=== PATIENT | male | born 1970 | race Caucasian/White ===

== ENCOUNTER 2019-12-25 07:56 | Outpatient (CLI) | payer BC, SELFPAY ==
[2019-12-26 09:27] LABS: PSA, Screening 4.7 ng/mL (0.0-3.5)
== END 2019-12-25 08:16 ==
PROVIDERS: PCP Family Medicine; Visit Provider Nurse Practitioner Gerontology
DX: R97.20 Elevated prostate specific antigen [PSA] (principal); N40.1 Benign prostatic hyperplasia with lower urinary tract symptoms; R33.8 Other retention of urine
CPT/HCPCS: 84153

== ENCOUNTER 2020-03-19 10:02 | Outpatient (REF) | payer BC, SELFPAY ==
[2020-03-19 23:51] LABS: PSA, Screening 5.8 ng/mL (0.0-3.5)
== END 2020-03-19 10:22 ==
LOC: LBN 10:02
PROVIDERS: PCP Family Medicine; Visit Provider Nurse Practitioner Gerontology
DX: N40.1 Benign prostatic hyperplasia with lower urinary tract symptoms (principal); R33.8 Other retention of urine; Z12.5 Encounter for screening for malignant neoplasm of prostate; N13.8 Other obstructive and reflux uropathy
CPT/HCPCS: 84153

== ENCOUNTER 2020-08-16 22:24 | Outpatient (RCR) | payer BC, SELFPAY | END 2020-09-04 23:59 | disposition home or self-care (01) | LOC: CR 22:24 | PROVIDERS: PCP Family Medicine; Visit Provider Family Medicine ==

== ENCOUNTER 2022-09-04 12:37 | Outpatient (REF) | payer BC, SELFPAY ==
[2022-09-04 20:34] LABS: Bilirubin Small (Negative); Blood Small (Negative); Clarity Cloudy (Clear); Glucose Negative (Negative); Ketones 40 mg/dL (Negative); Leukocyte Esterase Trace (Negative); Nitrite Negative (Negative); Specific Gravity >= 1.030 (1.005-1.025); Urobilinogen 0.2 mg/dL (Up to 0.2); pH 5.5 (5-8)
[2022-09-04 20:40] LABS: Bacteria Few HPF (Negative); C & S Indicated? Yes; Casts Negative LPF (Negative); Crystals Moderate Amorphous HPF (Negative); Epithelial Cells Few HPF (Negative); Mucus Negative (Negative)
== END 2022-09-04 12:38 | disposition home or self-care (01) ==
LOC: NCHCN 12:37
PROVIDERS: PCP Family Medicine; Visit Provider Nurse Practitioner Family
DX: N39.0 Urinary tract infection, site not specified (principal)
CPT/HCPCS: 87077; 81003; 81015; 87086; 87186

== ENCOUNTER 2023-06-23 10:41 | Outpatient (CLI) | payer BC, SELFPAY ==
[2023-06-24 17:44] LABS: Free PSA/PSA Ratio 0.16 ratio
== END 2023-06-23 10:42 | disposition home or self-care (01) ==
LOC: LBO 10:42
PROVIDERS: PCP Family Medicine; Visit Provider Urology
DX: R97.20 Elevated prostate specific antigen [PSA] (principal)
CPT/HCPCS: 36415; 84154

== ENCOUNTER 2024-04-24 09:20 | Outpatient (CLI) | payer BC, SELFPAY ==
[2024-04-24 13:17] LABS: ALT 38 U/L (16-63); AST 19 U/L (15-37); Albumin 4.1 g/dL (3.4-5.0); Alkaline Phosphatase 44 U/L (46-116); Anion Gap 5.8 mmol/L (3-11); BUN 18 mg/dL (7-18); Bilirubin, Total 0.42 mg/dL (0.2-1.0); CO2 29.2 mmol/L (21.0-32.0); Calcium 9.5 mg/dL (8.5-10.1); Calculated LDL 46 mg/dL (<100); Chloride 106 mmol/L (98-107); Cholesterol 102 mg/dL (<200); Estimated GFR 88.88 (mL/min/1.73m2); Glucose 93 mg/dL (74-106); HDL Cholesterol 51 mg/dL (40-60); Potassium 4.6 mmol/L (3.5-5.1); Sodium 141 mmol/L (136-145); Total Protein 7.7 g/dL (6.4-8.2); Triglyceride 27 mg/dL (<150)
[2024-04-24 22:54] LABS: PSA, Screening 4.2 ng/mL (<=3.5)
[2024-04-25 17:55] LABS: Hepatitis C Ab w Rflx HCV PCR Negative (Negative)
== END 2024-04-24 09:21 | disposition home or self-care (01) ==
LOC: LOS 09:20
PROVIDERS: PCP Family Medicine; Visit Provider Family Medicine
DX: I10 Essential (primary) hypertension (principal); Z00.00 Encounter for general adult medical examination without abnormal findings; Z11.59 Encounter for screening for other viral diseases; Z23 Encounter for immunization
CPT/HCPCS: 36415; 80053; 80061; 84153; 86803

== ENCOUNTER 2024-10-17 08:08 | Outpatient (CLI) | payer OTHER, SELFPAY | END 2024-10-17 08:09 | disposition home or self-care (01) | LOC: LOS 08:08 | PROVIDERS: PCP Family Medicine; Referring Provider Family Medicine; Visit Provider Family Medicine | DX: N40.1 Benign prostatic hyperplasia with lower urinary tract symptoms (principal); R33.8 Other retention of urine | CPT/HCPCS: 36415; 84154 ==

== ENCOUNTER 2025-04-06 12:33 | Outpatient (CLI) | payer OTHER, SELFPAY | END 2025-04-06 12:34 | disposition home or self-care (01) | LOC: LBO 12:34 | PROVIDERS: PCP Family Medicine; Visit Provider Urology | DX: R97.20 Elevated prostate specific antigen [PSA] (principal) | CPT/HCPCS: 36415; 84154 ==

== ENCOUNTER 2025-05-01 09:43 | Outpatient (CLI) | payer OTHER, SELFPAY ==
[2025-05-01 10:51] LABS: ALT 25 U/L (10-49); AST 23 U/L (<34); Albumin 4.7 g/dL (3.4-5.0); Alkaline Phosphatase 44 U/L (46-116); Anion Gap 4.1 mmol/L (3-11); BUN 24 mg/dL (9-23); Bilirubin, Total 0.80 mg/dL (0.2-1.2); CO2 29.9 mmol/L (20.0-31.0); Calcium 9.4 mg/dL (8.3-10.6); Chloride 107 mmol/L (98-107); Cholesterol 101 mg/dL (<200); Glucose 90 mg/dL (74-106); HDL Cholesterol 44 mg/dL (>40); Potassium 4.7 mmol/L (3.5-5.1); Sodium 141 mmol/L (136-145); Total Protein 7.3 g/dL (5.7-8.2)
== END 2025-05-01 09:44 | disposition home or self-care (01) ==
LOC: LBO 09:43
PROVIDERS: PCP Family Medicine; Visit Provider Family Medicine
DX: I10 Essential (primary) hypertension (principal)
CPT/HCPCS: 36415; 80053; 80061